=== PATIENT | male | born 1990 | race African-American/Black ===

== ENCOUNTER 2018-12-28 16:28 | Emergency (ER) | payer SELFPAY ==
[~2018-12-28] VITALS: Ht 182.9 cm; Wt 100.0 kg
[2018-12-28] MEDS ORDERED: IBUPROFEN 800MG TABLET PO ONE (18:00)
[2018-12-28] MEDS ORDERED: ONDANSETRON 4MG ODT PO ONE (18:45)
[2018-12-28] MEDS ORDERED: HYDROCODONE/ACETAMINOPHEN 5/325MG TABLET PO ONE (18:45)
[2018-12-28 19:10] VITALS: BP 145/71
== END 2018-12-28 19:15 | disposition home or self-care (01) ==
LOC: ER 16:28
DX: S63.682A Other sprain of left thumb, initial encounter (principal); I10 Essential (primary) hypertension; W21.01XA Struck by football, initial encounter; Y93.61 Activity, american tackle football; Y92.89 Other specified places as the place of occurrence of the external cause
CPT/HCPCS: 29130; 73140; 99284; Q0162